=== PATIENT | female | born 1990 | race African-American/Black ===

== ENCOUNTER 2019-06-10 10:42 | Emergency (ER) | payer MEDICAID ==
[~2019-06-10] VITALS: Ht 160 cm; Wt 105.0 kg
[2019-06-10] MEDS ORDERED: MORPHINE SULFATE 10 MG/ML CPJ IM ONE (15:00)
[2019-06-10] MEDS ORDERED: KETOROLAC 60MG/2ML VIAL IM ONE (15:00)
[2019-06-10 16:50] VITALS: BP 147/87
== END 2019-06-10 16:53 | disposition home or self-care (01) ==
LOC: ER 10:42
DX: M54.30 Sciatica, unspecified side (principal); M32.9 Systemic lupus erythematosus, unspecified; Z86.73 Personal history of transient ischemic attack (TIA), and cerebral infarction without residual deficits; Z96.643 Presence of artificial hip joint, bilateral
CPT/HCPCS: 72100; 81025; 93005; 96372; 99283; J1885; J2270